=== PATIENT | male | born 1990 | race Caucasian/White ===

== ENCOUNTER 2019-08-18 22:27 | Emergency (ER) | payer BC ==
--- NOTE | 2019-08-19 00:36 | ER Document Report ---
ED Medical Screen (RME) - General Chief Complaint: Upper Abdominal Pain Stated Complaint: ABDOMINAL PAIN, NAUSEA Time Seen by Provider: 08/19/19 00:32 Notes: HPI: 29-year-old male with history of prior gallbladder issues not including gallstones presenting to the emergency department complaining of 2 to 3 days of fairly constant right upper quadrant pain that worsens with eating or drinking. Patient has had nausea when the pain is bad, no fever. PHYSICAL EXAMINATION: Mild tenderness in the right upper quadrant on palpation. I have greeted and performed a rapid initial assessment of this patient. A comprehensive ED assessment and evaluation of the patient, analysis of test results and completion of medical decision making process will be conducted by an additional ED providers. - Related Data Allergies/Adverse Reactions: No Known Allergies Allergy (Verified 08/19/19 00:32) Physical Exam - Vital signs Vitals: Temp Pulse Resp BP Pulse Ox 98.4 F 98 16 144/83 H 100 08/18/19 23:10 08/18/19 23:10 08/18/19 23:10 08/18/19 23:10 08/18/19 23:10 Course - Vital Signs Vital signs: Temp Pulse Resp BP Pulse Ox 98.4 F 98 16 144/83 H 100 08/18/19 23:10 08/18/19 23:10 08/18/19 23:10 08/18/19 23:10 08/18/19 23:10
[2019-08-19 01:40] LABS: APPEARANCE,URINE CLEAR; BILIRUBIN,URINE NEGATIVE (NEGATIVE); COLOR,URINE YELLOW; GLUCOSE, URINE NEGATIVE (NEGATIVE); KETONES,URINE TRACE mg/dL (NEGATIVE); LEUKOCYTE ESTERASE,URINE NEGATIVE (NEGATIVE); NITRITE,URINE NEGATIVE (NEGATIVE); PROTEIN,URINE NEGATIVE (NEGATIVE); URINE SPECIFIC GRAVITY 1.006
--- NOTE | 2019-08-19 03:35 | RADIOLOGY REPORT (SQ) ---
CLINICAL INDICATION: ruq pain. . TECHNIQUE: Real time multiplanar ultrasonographic laura scale imaging was obtained of the right upper quadrant. 95 static images obtained. 2 cine loops COMPARISON: None. CORRELATION: None. FINDINGS: The liver is of increased echotexture. More dependent portions of the liver are not well seen due to echodensity of the near field. No evidence of intrahepatic biliary ductal dilatation. The common bile duct measures 7 millimeters. Portal vein is patent and appropriate in the visualized portion. The gallbladder is nondistended. Cholelithiasis. Gallbladder wall measures 3 mm.. No surrounding inflammatory changes. No evidence of gallbladder wall thickening or edema. Right kidney measures 11 cm. It is unremarkable. The midline structures are unremarkable in the visualized portion. . IMPRESSION: Medical hepatic disease, likely steatosis. Cholelithiasis without obvious acute cholecystitis. Dilatation of the common bile duct at 7 mm, cause for which is not seen..
[2019-08-19 04:10] LABS: ABSOLUTE EOSINOPHILS # (AUTO) 0.1 10^3/uL (0.0-0.6); ABSOLUTE LYMPHOCYTES (AUTO) 1.6 10^3/uL (0.5-4.7); ABSOLUTE MONOCYTES (AUTO) 0.8 10^3/uL (0.1-1.4); ABSOLUTE NEUT (AUTO) 4.9 10^3/uL (1.7-8.2); BASOPHILS % (AUTO) 0.6 % (0-2); EOSINOPHILS % (AUTO) 0.8 % (0-6); HEMATOCRIT 45.8 % (37.9-51.0); HEMOGLOBIN 15.9 g/dL (13.5-17.0); LYMPHOCYTES % (AUTO) 22.1 % (13-45); MEAN CORPUSCULAR HEMOGLOBIN 31.6 pg (27.0-33.4); MEAN CORPUSCULAR HGB CONC 34.8 g/dL (32.0-36.0); MEAN CORPUSCULAR VOLUME 91 fl (80-97); MONOCYTES % (AUTO) 10.1 % (3-13); PLATELET COUNT 224 10^3/uL (150-450); RED BLOOD COUNT 5.05 10^6/uL (4.35-5.55); RED CELL DISTRIBUTION WIDTH 13.7 % (11.5-14.0); SEGMENTED NEUTROPHILS % (AUTO) 66.4 % (42-78); TOTAL CELLS COUNTED % (AUTO) 100 %; WHITE BLOOD COUNT 7.4 10^3/uL (4.0-10.5)
[2019-08-19 04:23] LABS: ALBUMIN 5.1 g/dL (3.5-5.0); ALKALINE PHOSPHATASE 258 U/L (38-126); ANION GAP 12 (5-19); ASPARTATE AMINO TRANSFERASE 246 U/L (17-59); BILIRUBIN,DIRECT 3.4 mg/dL (0.0-0.4); BILIRUBIN,TOTAL 5.9 mg/dL (0.2-1.3); BLOOD UREA NITROGEN 9 mg/dL (7-20); CALCIUM 10.1 mg/dL (8.4-10.2); CARBON DIOXIDE 25 mmol/L (22-30); CHLORIDE 104 mmol/L (98-107); GLUCOSE 111 mg/dL (75-110); POTASSIUM 4.1 mmol/L (3.6-5.0); TOTAL PROTEIN 8.6 g/dL (6.3-8.2)
[2019-08-19] MEDS ORDERED: ONDANSETRON 4 MG TAB.RAPDIS PO ONE (04:40)
--- NOTE | 2019-08-19 04:42 | ER Document Report ---
ED GI/ - General Chief Complaint: Upper Abdominal Pain Stated Complaint: ABDOMINAL PAIN, NAUSEA Time Seen by Provider: 08/19/19 00:32 Mode of Arrival: Ambulatory Information source: Patient Notes: 29-year-old male patient presents emergency department with right upper quadrant abdominal pain with nausea. He states the pain comes and goes, is worse after he eats and then resolves without intervention. Patient reports pain has increased over the last couple of days. He was diagnosed with a "thickened gallbladder" a few years ago. He has not had to follow-up on this as it has not been bothersome. He has had an increase of fast food intake over the last couple of weeks. He denies any fevers, chills, vomiting, diarrhea. - Related Data Allergies/Adverse Reactions: No Known Allergies Allergy (Verified 08/19/19 00:32) Past Medical History - General Information source: Patient - Social History Smoking Status: Never Smoker Frequency of alcohol use: None Drug Abuse: None Family History: Reviewed & Not Pertinent Patient has homicidal ideation: No - Medical History Medical History: Negative Surgical Hx: Negative - Immunizations Immunizations up to date: Yes Review of Systems - Review of Systems Constitutional: denies: Chills, Fever EENT: No symptoms reported Cardiovascular: No symptoms reported Respiratory: No symptoms reported Gastrointestinal: Abdominal pain, Nausea. denies: Diarrhea, Vomiting Genitourinary: No symptoms reported Male Genitourinary: No symptoms reported Musculoskeletal: No symptoms reported Skin: No symptoms reported Hematologic/Lymphatic: No symptoms reported Neurological/Psychological: No symptoms reported Physical Exam - Vital signs Vitals: Temp Pulse Resp BP Pulse Ox 98.4 F 98 16 144/83 H 100 08/18/19 23:10 08/18/19 23:10 08/18/19 23:10 08/18/19 23:10 08/18/19 23:10 - Notes Notes: PHYSICAL EXAMINATION: GENERAL: Well-appearing, well-nourished and in no acute distress. HEAD: Atraumatic, normocephalic. EYES: Pupils equal round and reactive to light, extraocular movements intact, sclera anicteric, conjunctiva are normal. ENT: Nares patent, oropharynx clear without exudates. Moist mucous membranes. NECK: Normal range of motion, supple without lymphadenopathy LUNGS: Breath sounds clear to auscultation bilaterally and equal. No wheezes rales or rhonchi. HEART: Regular rate and rhythm without murmurs ABDOMEN: Abdomen soft, tenderness to the right upper quadrant, positive Pat sign. Musculoskeletal: Normal range of motion, no pitting or edema. No cyanosis. NEUROLOGICAL: Cranial nerves grossly intact. Normal speech, normal gait. Normal sensory, motor exams PSYCH: Normal mood, normal affect. SKIN: Warm, Dry, normal turgor, no rashes or lesions noted. Course - Re-evaluation Re-evalutation: Laboratory 08/19/19 08/19/19 08/19/19 00:43 03:55 03:55 WBC 7.4 RBC 5.05 Hgb 15.9 Hct 45.8 MCV 91 MCH 31.6 MCHC 34.8 RDW 13.7 Plt Count 224 Lymph % (Auto) 22.1 [place] % (Auto) 10.1 Eos % (Auto) 0.8 Baso % (Auto) 0.6 Absolute Neuts (auto) 4.9 Absolute Lymphs (auto) 1.6 Absolute Monos (auto) 0.8 Absolute Eos (auto) 0.1 Absolute Basos (auto) 0.0 Seg Neutrophils % 66.4 Sodium 141.1 Potassium 4.1 Chloride 104 Carbon Dioxide 25 Anion Gap 12 BUN 9 Creatinine 0.77 Est GFR ( Amer) > 60 Est GFR (MDRD) Non-Af > 60 Glucose 111 H Calcium 10.1 Total Bilirubin 5.9 H Direct Bilirubin 3.4 H Neonat Total Bilirubin Not Reportable Neonat Direct Bilirubin Not Reportable Neonat Indirect Bili Not Reportable AST 246 H ALT 414 H Alkaline Phosphatase 258 H Total Protein 8.6 H Albumin 5.1 H Lipase 57784.6 H Urine Color YELLOW Urine Appearance CLEAR Urine pH 6.0 Ur Specific [place] 1.006 Urine Protein NEGATIVE Urine Glucose (UA) NEGATIVE Urine Ketones TRACE H Urine Blood NEGATIVE Urine Nitrite NEGATIVE Urine Bilirubin NEGATIVE Urine Urobilinogen 4.0 H Ur Leukocyte Esterase NEGATIVE Urine WBC (Auto) 1 Urine Mucus (Auto) RARE Urine Ascorbic Acid NEGATIVE Abdomen Ultrasound 08/19/19 00:35 IMPRESSION: Medical hepatic disease, likely steatosis. Cholelithiasis without obvious acute cholecystitis. Dilatation of the common bile duct at 7 mm, cause for which is not seen.. Patient has elevated bilirubin direct and total, elevated lipase and elevated liver function tests. He has dilation of the common bile duct and cholelithiasis without cholecystitis. He is in need of an ERCP and will be in need of transfer as there is no GI on-call here at our facility now or in the morning. 08/19/19 05:31 Call placed to [facility] to initiate transfer. Patient has significantly elevated bilirubin, LFTs and lipase. He has cholelithiasis on his ultrasound. 08/19/19 05:48 Patient accepted for transfer to [facility]. I spoke with hospitalist Dr. Svitlana Diez. 08/19/19 08:48 Transport is at the bedside to transport the patient to [facility]. Patient stable condition for transfer. - Vital Signs Vital signs: Temp Pulse Resp BP Pulse Ox 98.1 F 70 16 120/77 97 08/19/19 08:44 08/19/19 08:44 08/19/19 08:44 08/19/19 08:44 08/19/19 08:44 - Laboratory Result Diagrams: 08/19/19 03:55 08/19/19 03:55 Laboratory results interpreted by me: 08/19/19 08/19/19 00:43 03:55 Glucose 111 H Total Bilirubin 5.9 H Direct Bilirubin 3.4 H AST 246 H ALT 414 H Alkaline Phosphatase 258 H Total Protein 8.6 H Albumin 5.1 H Lipase 96525.6 H Urine Ketones TRACE H Urine Urobilinogen 4.0 H Discharge - Discharge Clinical Impression: Acute gallstone pancreatitis, Biliary obstruction, Elevated LFTs, Serum total bilirubin elevated Condition: Stable Disposition: [facility]
[2019-08-19] MEDS ORDERED: NORMAL SALINE 1000 ML 1,000 ML IV ONE (05:47)
[2019-08-19] MEDS ORDERED: KETOROLAC TROMETHAMINE INJ/PF 30 MG/1 ML SDV IV ONE (06:15)
[2019-08-19 08:47] VITALS: BP 120/77
== END 2019-08-19 08:46 | disposition short-term general hospital (02) ==
LOC: ER 22:27
DX: K85.10 Biliary acute pancreatitis without necrosis or infection (principal); K83.1 Obstruction of bile duct; K76.9 Liver disease, unspecified; R10.11 Right upper quadrant pain; R11.0 Nausea
CPT/HCPCS: 99285; 96361; 96374; 36415; 83690; 85025; 80053; 81001; 76705; S0119; J1885; J7030